=== PATIENT | female | born 2000 | race Caucasian/White ===

== ENCOUNTER 2020-10-24 20:34 | Emergency (ER) | payer OTHER ==
[~2020-10-24 20:34] MED LIST: BENTYL 10MG CAP10 MG PO; CLEOCIN HCL150 MG PO; IBUPROFEN600 MG PO; IBUPROFEN800 MG PO; LODINE CAP 300300 MG PO; ZOFRAN 4 MG TAB4 MG PO
== END 2020-10-24 22:20 | disposition left against medical advice (07) ==
LOC: ER1 20:34
DX: Z53.21 Procedure and treatment not carried out due to patient leaving prior to being seen by health care provider (principal)

== ENCOUNTER 2021-01-24 19:29 | Emergency (ER) | payer OTHER | END 2021-01-24 21:55 | disposition home or self-care (01) | LOC: ER1 19:29 | DX: R09.81 Nasal congestion (principal); R05 Cough; R19.7 Diarrhea, unspecified; F17.290 Nicotine dependence, other tobacco product, uncomplicated; Z20.822 Contact with and (suspected) exposure to COVID-19; Z88.0 Allergy status to penicillin | CPT/HCPCS: 99284; U0002 ==

== ENCOUNTER 2021-03-07 17:47 | Emergency (ER) | payer OTHER ==
[2021-03-07 20:24] LABS: HEMOGLOBIN 11.7 gm/dl (12.3-15.3); RED BLOOD COUNT 4.47 M/UL (4.00-5.10); WHITE BLOOD COUNT 10.5 K/UL (4.5-11.0)
[2021-03-07 20:40] LABS: BUN/CREATININE RATIO 14 (0-10)
[2021-03-07] MEDS ORDERED: MACROBID 100 M100 M1 PO (22:23)
== END 2021-03-07 22:50 | disposition home or self-care (01) ==
LOC: ER1 17:47
PROVIDERS: Physician Assistant
DX: N39.0 Urinary tract infection, site not specified (principal); R31.9 Hematuria, unspecified; Z88.0 Allergy status to penicillin; Z79.899 Other long term (current) drug therapy
CPT/HCPCS: 80053; 81001; 83605; 83735; 83880; 84100; 84703; 85025; 85610; 85652; 85730; 86140; 87040; 87086; 96374; 96375; 99284; J0696; J2270; J2405; J7030

== ENCOUNTER 2021-05-06 20:21 | Emergency (ER) | payer OTHER ==
[~2021-05-06 20:21] MED LIST changes: +MACROBID 100 M100 M1 PO
[2021-05-06 22:14] LABS: HEMOGLOBIN 12.4 gm/dl (12.3-15.3); RED BLOOD COUNT 4.8 M/UL (4.00-5.10); WHITE BLOOD COUNT 15.4 K/UL (4.5-11.0)
[2021-05-06 22:56] LABS: BUN/CREATININE RATIO 24 (0-10)
[2021-05-07] MEDS ORDERED: ZOFRAN ODT 4 MG4 MG PO (00:50)
== END 2021-05-07 01:00 | disposition home or self-care (01) ==
LOC: ER1 20:21
PROVIDERS: Physician Assistant Medical
DX: R11.2 Nausea with vomiting, unspecified (principal); R10.9 Unspecified abdominal pain; R04.0 Epistaxis; Z88.0 Allergy status to penicillin; Z20.822 Contact with and (suspected) exposure to COVID-19
CPT/HCPCS: 80053; 81001; 84703; 85025; 85610; 99284; U0002